=== PATIENT | male | born 1955 | race Caucasian/White ===

== ENCOUNTER 2019-11-25 08:58 | Emergency (ER) | payer SELFPAY ==
[~2019-11-25] VITALS: Ht 170 cm; Wt 91.0 kg
[2019-11-25 09:05] VITALS: BP 142/91
--- OUTSIDE RECORDS SUMMARY | 2019-11-25 09:06 | XMS REPORT ---
Author Author Torito Young Doctor Organization [facility] Address Unknown Phone Unavailable Care Team Providers Care Core Analyst Name Role Phone Migration, Doctor Unavailable Unavailable PROBLEMS Type Condition ICD9-CM Code [id number] Code Onset Dates Condition S tatus SNOMED Code Problem Acute bronchitis 466.0 Active 105 81281 Problem Benign paroxysmal positional vertigo 386.11 Active [id number] ALLERGIES No Information ENCOUNTERS Encounter Location Date Diagnosis [facility] [address] [place] [id number] 07 Oct, 2015 Dental examination Z01.20 [facility] [id number] [place] [phone] 24 Apr, 2015 Abdominal pain 789.00 and An xiety 300.00 [facility] [id number] [place] [phone] Nov, [facility] [address] [phone] Nov, [facility] [id number] [place] [phone] Apr, [facility] [id number] [place] [phone] Apr, [facility] [id number] [place] [phone] Oct, [facility] [id number] [place] [phone] Oct, [facility] [id number] [place] [phone] Aug, IMMUNIZATIONS No Known Immunizations SOCIAL HISTORY Never Assessed REASON FOR VISIT EMR-[facility] PLAN OF CARE VITAL SIGNS MEDICATIONS No Known Medications RESULTS No Results PROCEDURES No Known procedures INSTRUCTIONS MEDICATIONS ADMINISTERED No Known Medications MEDICAL (GENERAL) HISTORY Type Description Date Medical History anxiety
--- OUTSIDE RECORDS SUMMARY | 2019-11-25 09:07 | XMS REPORT ---
Author Author Torito HUERTA Organization [employer] Address Unknown Phone Unavailable Care Team Providers Care Inward Toll Operator Name Role Phone REMI HUERTA CP Unavailable Allergies, Adverse Reactions, Alerts Substance Reaction Event Type N.K.D.A. Info Not Available Non Drug Allergy Problems Problem Type Condition ICD-9 Code Onset Dates Condition Statu s Problem Acute bronchitis 466.0 Active Assessment Abdominal pain 789.00 Active Problem Benign paroxysmal positional vertigo 386.11 Active Assessment Anxiety 300.00 Active Medications Medication Code System Code Instructions Start Date End Date Status Dosage Xanax [facility] [address]-78 0.5 MG Orally PRN once daily May 20, 2015 1 tablet Xanax [facility] [address]-60 0.5 MG Orally Three times a day as needed 1 tablet Cipro [facility] [address]-30 500 MG Orally Twice a day May 20, 2015 Oc t 2014 1 tablet Procedures Procedure Coding System Code Date COMPLETE CBC W/AUTO DIFF WBC CPT-4 46414 Apr COMPREHEN METABOLIC PANEL CPT-4 90610 Apr 282014 URINALYSIS, AUTO, W/O SCOPE CPT-4 51003 May 20, 2015 Office Visit, Est Pt., Level 3 CPT-4 94333 S ept 2014 VENIPUNCT, ROUTINE* CPT-4 73153 May 20, 201 5 Vital Signs Date/Time: May 20, 2015 Temperature 98.1 F Weight 217.7 lbs Height 68 in BMI 33.10 Index Blood Pressure Diastolic 78 mmHg Blood Pressure Systolic 142 mmHg Cardiac Monitoring Heart Rate 76 bpm Results Name Result Date Reference Range Unit Abnormali ty Flag UA W/CULTURE IF INDICATED (IN HOUSE) Summary Purpose [employer] Submission
--- OUTSIDE RECORDS SUMMARY | 2019-11-25 09:07 | XMS REPORT ---
Author Author Torito Young Doctor Organization [facility] Address Unknown Phone Unavailable Care Team Providers Care Senior Structural Engineer Name Role Phone Migration, Doctor Unavailable Unavailable PROBLEMS Type Condition ICD9-CM Code [id number] Code Onset Dates Condition S tatus SNOMED Code Problem Acute bronchitis 466.0 Active 105 24605 Problem Benign paroxysmal positional vertigo 386.11 Active 290807250 ALLERGIES No Information ENCOUNTERS Encounter Location Date Diagnosis [facility] [address] [place] [id number] 07 Oct, 2015 Dental examination Z01.20 [facility] [id number] [place] [phone] 24 Apr, 2015 Abdominal pain 789.00 and An xiety 300.00 [facility] [id number] [place] [phone] Nov, [facility] [id number] [place] [phone] Nov, [facility] [id number] [place] [phone] Apr, [facility] [id number] [place] [phone] Apr, [facility] [id number] [place] [phone] Oct, [facility] [id number] [place] [phone] Oct, [facility] [id number] [place] [phone] Aug, IMMUNIZATIONS No Known Immunizations SOCIAL HISTORY Never Assessed REASON FOR VISIT [facility]MR-[facility] PLAN OF CARE VITAL SIGNS MEDICATIONS Medication Instructions Dosage Frequency Start Date End Date Duration S tatus ProAir HFA 90 mcg/actuation 2 puffs by I nhalation route 4 times per day for 30 day(s) Oct, Active meclizine 25 mg 1 tablet by Oral route 4 times per day PRN Apr, Active PredniSONE 10 mg 1 Tablet 2 times per day for 5 days Take at 8 am and noon. Do not take after 3 pm Apr, Active Symbicort 80-4.5 mcg/actuation 2 puffs b y Inhalation route 2 times per day for 30 day(s) Oct, Active RESULTS No Results PROCEDURES No Known procedures INSTRUCTIONS MEDICATIONS ADMINISTERED No Known Medications MEDICAL (GENERAL) HISTORY Type Description Date Medical History anxiety
--- OUTSIDE RECORDS SUMMARY | 2019-11-25 09:07 | XMS REPORT | Continuity of Care Document ---
Author Organization Unknown Address Unknown Phone Unavailable Allergies There is no data. Medications There is no data. Problems Date Dx Coded Attending Type Code Diagnosis Diagnosed By 09/13/2010 CARLY AARON APRN 300 .00 ANXIETY UNSPEC 09/13/2010 KIRSTIN MALAGON APRN 300.00 ANXIETY UNSPEC 11/06/2011 CARLY AARON APRN 466 .0 BRONCHITIS, ACUTE 11/06/2011 KIRSTIN MALAGON APRN 46 6.0 BRONCHITIS, ACUTE 05/01/2014 CARLY AARON APRN 386 .11 BENIGN PAROXYSMAL POSITIONAL VERTIGO 05/01/2014 KIRSTIN MALAGON APRN 386.11 BENIGN PAROXYSMAL POSITIONAL VERTIGO 11/26/2014 KIRSTIN MALAGON APRN 60 7.9 UNSPECIFIED DISORDER OF PENIS Procedures Code [place] [address] UA W / CULTURE IF INDICATED 11/26/2014 Results There is no data. Encounters ACCT No. Visit Date/Time Discharge Status Pt. Type Provider Facility Loc./Unit Complaint [id number] 11/26/2014 09:56:00 11/26/2014 23:59: 59 [facility] Outpatient KIRSTIN MALAGON APRN [id number] 05/01/2014 14:13:00 05/01/2014 23:59: 59 [facility] Outpatient CARLY AARON APRN
[2019-11-25] MEDS ORDERED: TETRACAINE 0.5% OPHTH SOLN 4 ML BTL (SINGLE DOSE ONLY) OU ONE (09:15)
[2019-11-25] MEDS ORDERED: FLUORESCEIN (FLUOR-I-STRIPS) 1 MG STRP OU ONE (09:15)
[2019-11-25] MEDS ORDERED: BSS 15 ML IR ONE (09:15)
--- NOTE | 2019-11-25 09:38 | NUR ---
UNABLE TO FLUSH PIECE OF METAL OUT OF R EYE. PT PLANS TO SEND PT TO SEE DR CHAPA
--- NOTE | 2019-11-25 09:40 | ED EENT ---
History of Present Illness General Chief Complaint: Eye Problems Stated Complaint: FORIEGN BODY RIGHT EYE Nursing Triage Note: PT CO OF PIECE OF METAL IN R EYE FOR APPROX 3 DAYS Source: patient Exam Limitations: no limitations History of Present Illness Date Seen by Provider: Nov 25, 2019 Time Seen by Provider: 09:05 Initial Comments This 64-year-old gentleman presents to the emergency room with a metal foreign body in the right eye for 3 days. This occurred while he was grinding. He was wearing normal glasses but not protective eyewear. He has tried irrigating extensively but has not been able to relieve the foreign body. Allergies and Home Medications Allergies Coded Allergies: No Known Drug Allergies (Unverified , 11/25/19) Patient Home Medication List Home Medication List Reviewed: Yes Review of Systems Review of Systems Constitutional: no symptoms reported Eyes: See HPI Ears: No Symptoms Reported Nose: no symptoms reported Mouth: no symptoms reported Skin: no symptoms reported Neurological: No Symptoms Reported Past Qdiprpx-Pgkuer-Vrusif Hx Past Med/Social Hx: Reviewed Nursing Past Med/Soc Hx Patient Social History Alcohol Use: Denies Use Recreational Drug Use: Yes Smoking Status: Never a Smoker Recent Foreign Travel: No Contact w/Someone Who Travel: No Recent Infectious Disease Expo: No Recent Hopitalizations: No Physical Abuse: No Sexual Abuse: No Immunizations Up To Date Tetanus Booster (TDap): Unknown Past Medical History Surgeries: No Respiratory: No Cardiac: No Neurological: No Genitourinary: No Gastrointestinal: No Musculoskeletal: No Endocrine: No HEENT: No Cancer: No Psychosocial: No Integumentary: No Blood Disorders: No Physical Exam Vital Signs Vital Signs - First Documented 11/25/19 09:05 Temp 35.9 Pulse 68 Resp 18 B/P (MAP) 142/91 (108) Pulse Ox 96 Height, Weight, BMI Height: '" Weight: lbs. oz. kg; 31.00 BMI Method: General Appearance: WD/WN, no apparent distress Eyes: right eye PERRL, right eye EOMI, right eye other (metallic foreign body at about the one o'clock position of the right cornea) Ears: bilateral ear auricle normal Nose: normal inspection Mouth/Throat: normal mouth inspection Neurologic/Psychiatric: identity management consultant II-XII nml as tested, no motor/sensory deficits, alert, oriented x 3 Skin: normal color, warm/dry Progress/Results/Core Measures Results/Orders My Orders Orders - NICHOLAS CEE MD Tetracaine 0.5% Ophth Gela Sdv (Tetracai (11/25/19 09:15) Fluorescein Strips (Gdhsy-T-Fiurie) (11/25/19 09:15) Balanced Salt Irrigation Soln (Bss Irrig (11/25/19 09:15) Medications Given in ED Current Medications Medications Dose Ordered Sig/Henry Route Start Time Stop Time Status Last Admin Dose Admin Balanced Salt Solution 15 ml ONCE ONCE IR 11/25/19 09:15 11/25/19 09:16 DC 11/25/19 09:28 15 ML Fluorescein Sodium 1 mg ONCE ONCE OU 11/25/19 09:15 11/25/19 09:16 DC 11/25/19 09:29 1 MG Tetracaine HCl 4 ml ONCE ONCE OU 11/25/19 09:15 11/25/19 09:16 DC 11/25/19 09:29 4 ML Vital Signs/I&O 11/25/19 09:05 Temp 35.9 Pulse 68 Resp 18 B/P (MAP) 142/91 (108) Pulse Ox 96 Blood Pressure Mean: 108 Progress Progress Note : Progress Note Patient was treated with tetracaine. Gross exam revealed a metallic foreign body. I attempted to irrigate with a balanced saline but the foreign body would not dislodge. We also tried to lift with a sterile swab but this was also unsuccessful. Case was discussed with Dr. Duenas. He directed the patient to the clinic to see Dr. Hameed. Departure Impression Primary Impression: Foreign body of right eye Qualified Codes: T15.91XA - Foreign body on external eye, part unspecified, right eye, initial encounter Disposition: 01 HOME, SELF-CARE Condition: Stable Departure-Patient Inst. Referrals: [facility] [place] Primary Care Physician IGOR DUENAS OD Patient Instructions: Foreign Body in Eye Add. Discharge Instructions: [facility]. Dr. Hameed is expecting you and will treat you urgently. All discharge instructions reviewed with patient and/or family. Voiced understanding. Copy Copies To 1: CRISS HAMEED OD Copies To 2: JULITO MORGAN JOSHUA T MD Nov 25, 2019 09:40
== END 2019-11-25 09:44 | disposition home or self-care (01) ==
LOC: ER 09:02
DX: T15.91XA Foreign body on external eye, part unspecified, right eye, initial encounter (principal)
CPT/HCPCS: 99282